=== PATIENT | female | born 1955 | race Caucasian/White ===

== ENCOUNTER 2017-11-21 08:52 | Emergency (ER) | payer OTHER ==
[2017-11-21 09:18] VITALS: BP 121/72
[2017-11-21] MEDS ORDERED: Ondansetron 4 MG/2 ML SDV IVPUSH ONE (09:33)
--- NOTE | 2017-11-21 09:33 | EDM.PDOC ---
ED HPI GENERAL MEDICAL PROBLEM - General Chief Complaint: Flank Pain Stated Complaint: POSS. KIDNEY STONE Time Seen by Provider: 11/21/17 09:27 Source of Information: Reports: Patient History Limitations: Reports: No Limitations - History of Present Illness INITIAL COMMENTS - FREE TEXT/NARRATIVE: 62-year-old female presents to the ED with acute onset of severe left lower quadrant abdominal pain. She states shortly after she woke this morning she felt a need to pass her bowels. Also moved 3 times this morning. On her way to work she started to develop left flank pain and then left kenya-abdominal pain radiating down to the left groin shortly after getting to work at 8:00. Associated nausea with vomiting 3 in the ED. She now feels somewhat better as far as nausea goes. Pain is down to a 2 out of 10. Last kidney stone was about 4 years ago requiring lithotripsy by Dr Chang to have it removed. Onset: Today Onset Date: 11/21/17 Onset Time: 07:30 Duration: Minutes: Location: Reports: Abdomen (Left lower quadrant of the abdomen left flank.) Quality: Reports: Ache, Sharp, Stabbing Severity: Severe (Was 9 out of 10 currently pain is 2-3 out of 10 and she states tolerable.) Improves with: Reports: Other Worsens with: Reports: None Context: Reports: Other (Acute onset of left kenya-abdominal pain rating to the left groin and left flank pain 0 through 7:30 hours this morning.). 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: Reports: Other (see below) (None.) Left Lower Abdomen Pain Score (Numeric/FACES): 6 - Related Data Allergies Allergy/AdvReac Type Severity Reaction Status Date / Time morphine Allergy Itching Verified 11/21/17 09:18 Sulfa (Sulfonamide Allergy Cannot Verified 11/21/17 09:18 Antibiotics) Remember Home Meds: Home Meds Cephalexin 500 mg PO QID 11/21/17 [History] Ondansetron [Zofran] 4 mg BUCCAL Q6H PRN #8 tab 11/21/17 [Rx] Tamsulosin [Tamsulosin 24 Hr] 0.4 mg PO DAILY #5 cap.er 11/21/17 [Rx] oxyCODONE HCl/Acetaminophen [Percocet 5-325 mg Tablet] 1 - 2 each PO Q4H PRN # 20 tablet 11/21/17 [Rx] Past Medical History 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 (See Below) Other OB/BYN History: inner tubular cyst removed from right ovary - Past Surgical History HEENT Surgical History: Reports: Tonsillectomy GI Surgical History: Reports: Appendectomy Female Surgical History: Reports: Kidney stone extraction, Tubal Ligation Social & Family History - Tobacco Use Smoking Status *Q: Never Smoker - Caffeine Use Caffeine Use: Reports: None - Alcohol Use Days Per Week of Alcohol Use: 0 - Recreational Drug Use Recreational Drug Use: No - Living Situation & Occupation Living situation: Reports: 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 Denies: Fever, Chills, Malaise, Weakness, Fatigue, Weight Loss HEENT: Reports: No Symptoms Respiratory: Reports: No Symptoms Cardiovascular: Reports: No Symptoms Endocrine: Reports: No Symptoms GI/Abdominal: Reports: Abdominal Pain (See history of present illness left kenya- abdominal pain rating to the left groin) : Reports: Flank Pain, Frequency. Denies: Hematuria Musculoskeletal: Reports: No Symptoms (Left flank pain) Skin: Reports: Pallor, Diaphoresis Neurological: Reports: No Symptoms Psychiatric: Reports: No Symptoms Hematologic/Lymphatic: Reports: No Symptoms Immunologic: Reports: No Symptoms ED EXAM, RENAL/ - Physical Exam Exam: See Below Exam Limited By: No Limitations General Appearance: Alert, WD/WN, Moderate Distress (She states pain is down to 3 out of 10.) Eye Exam: Bilateral Eye: Normal Inspection (No jaundice.) Respiratory/Chest: No Respiratory Distress, Lungs Clear, Normal Breath Sounds, No Accessory Muscle Use Cardiovascular: Normal Peripheral Pulses, Regular Rate, Rhythm, No Edema, No Gallop, No Murmur GI/Abdominal: Soft, Non-Tender, No Organomegaly, No Mass, Pelvis Stable, Abnormal Bowel Sounds, Other (Previous surgical scars were she's had an appendectomy and part of her right fallopian tube and ovary removed in the past. ) Back Exam: No: CVA Tenderness (L), CVA Tenderness (R) Extremities: Normal Inspection, Normal Range of Motion, Non-Tender, No Pedal Edema Neurological: Alert, Oriented, CN II-XII Intact, Normal Cognition, Normal Gait Psychiatric: Normal Affect, Normal Mood Skin Exam: Warm, Dry, Intact, Pallor (Mild pallor.) Course - Vital Signs Last Recorded V/S: Last Vital Signs Temp 35.8 C 11/21/17 09:12 Pulse 80 11/21/17 09:12 Resp 18 11/21/17 09:12 BP 121/72 11/21/17 09:12 Pulse Ox 100 11/21/17 09:12 - Orders/Labs/Meds Orders: Active Orders 24 hr Category Date Time Status Ketorolac [Toradol] Med 11/21/17 10:30 Active 30 mg IVPUSH ONETIME Medication Orders Ketorolac Tromethamine (Toradol) 30 mg IVPUSH ONETIME RESHMA Last Admin: 11/21/17 10:36 Dose: 30 mg Labs: Laboratory Tests 11/21/17 Range/Units 09:45 Urine Color Yellow (Yellow) Urine Appearance Clear (Clear) Urine pH 6.0 (5.0-8.0) Ur Specific [place] 1.025 (1.005-1.030) Urine Protein Trace H (Negative) Urine Glucose (UA) Negative (Negative) Urine Ketones Negative (Negative) Urine Occult Blood 3+ H (Negative) Urine Nitrite Negative (Negative) Urine Bilirubin Negative (Negative) Urine Urobilinogen 0.2 (0.2-1.0) Ur Leukocyte Esterase Negative (Negative) Urine RBC 10-20 H (0-5) /hpf Urine WBC 0-5 (0-5) /hpf Ur Epithelial Cells 0-5 (0-5) /hpf Urine Bacteria Few (FEW) /hpf Urine Mucus Not seen (FEW) /hpf Meds: Medications Generic Name Dose Route Start Last Admin Trade Name Freq PRN Reason Stop Dose Admin Ketorolac Tromethamine 30 mg 11/21/17 10:30 11/21/17 10:36 Toradol IVPUSH 30 mg ONETIME RESHMA Administration Discontinued Medications Generic Name Dose Route Start Last Admin Trade Name Freq PRN Reason Stop Dose Admin Hydromorphone HCl 0.5 mg 11/21/17 10:22 11/21/17 10:37 Dilaudid IVPUSH 11/21/17 10:23 0.5 mg ONETIME ONE Administration Hydromorphone HCl Confirm 11/21/17 10:40 11/21/17 10:40 Dilaudid Administered 11/21/17 10:41 Not Given Dose 0.5 mg .ROUTE .STK-MED ONE Ondansetron HCl 4 mg 11/21/17 09:33 11/21/17 09:49 Zofran IVPUSH 11/21/17 09:34 4 mg ONETIME ONE Administration - Radiology Interpretation Free Text/Narrative:: 62-year-old female presents the ED with acute onset of left kenya-abdominal pain radiating down to left groin. Associated low back pain and left flank pain. She has a history of renal stones in the past last one was about 4 years ago requiring lithotripsy. No clear she is presenting with left renal colic. Offered her pain medicine but she declined at this time. I will give her Zofran 4 mg sublingual so that she can tolerate oral meds later. CT of the abdomen will be done per renal protocol. Suspect if one becomes available. - Re-Assessments/Exams Free Text/Narrative Re-Assessment/Exam: 11/21/17 10:25 ordered Dilaudid 0.5 mg IV with Toradol 30 mg IV for acute pain relief. CT of the abdomen and pelvis per renal protocol revealed a proximal 6.2 mm obstructing stone within the proximal left ureter. Several small calcified gallstones also appreciated. No stones were identified in either renal parenchyma at this time. Free Text/Narrative Re-Assessment/Exam: 11/21/17 11:26 pain is much improved. I was able to make an appointment for her to see Dr. Chang on Saturday at 0845 hrs. This should be through the outpatient clinic at [facility]. She'll be discharged with Zofran 4 mg sublingually every 4-6 hours needed for nausea relief. Percocet tabs 5/325 milligrams one or 2 every 4-6 hours needed for pain relief. She will be provided a urinary symptoms of to collect urine specimens in case the stone Is to pass on its own over the weekend. Departure - Departure Time of Disposition: 11:57 Disposition: Home, Self-Care 01 Condition: Fair Clinical Impression: Renal colic on left side - Discharge Information Prescriptions: Ondansetron [Zofran] 4 mg BUCCAL Q6H PRN #8 tab PRN Reason: nausea or vomiting oxyCODONE HCl/Acetaminophen [Percocet 5-325 mg Tablet] 1 - 2 each PO Q4H PRN # 20 tablet PRN Reason: pain relief. Tamsulosin [Tamsulosin 24 Hr] 0.4 mg PO DAILY #5 cap.er Referrals: Jonny Everett MD [Primary Care Provider] - Forms: ED Department Discharge Additional Instructions: Evaluation the emergency room today in regards to acute onset of severe left sided abdominal pain rating down to the left groin compatible with a kidney stone. Suffered with these in the past. CT confirms a 6.2 mm stone lodged within the proximal left ureter. This stone has a 50% chance of passage since she required lithotripsy on last occasion is felt prudent to seek urological consultation sooner rather than later. I have therefore made arrangements for you to see Dr. Chang at [facility] in [place] on November 26 at 0845 hours. In the meantime strain the urine to see if you get trevon enough that the stone passes on its own over the weekend. Drink plenty of fluids. May use Motrin or Aleve for pain relief. May use Percocet 5/325 milligram tablets one or 2 every 4-6 hours for pain not controlled by Motrin or Aleve alone. Zofran 4 mg may be used under the tongue every 4-6 hours if necessary for relief of nausea or vomiting so that you can keep down pain medication. Use Flomax 0.4 mg every night at bedtime for the next 5 days as it may help relax the ureter and pass the stone. Return to medical care if you develop fever chills or nausea vomiting persists in spite of medication or pain is uncontrolled. - My Orders Last 24 Hours: My Active Orders 11/21/17 10:30 Ketorolac [Toradol] 30 mg IVPUSH ONETIME - Assessment/Plan Last 24 Hours: My Active Orders 11/21/17 10:30 Ketorolac [Toradol] 30 mg IVPUSH ONETIME
[2017-11-21] MEDS ORDERED: HYDROmorphone 1 MG/ML Syringe IVPUSH ONE (10:22)
[2017-11-21] MEDS ORDERED: Ketorolac 30 MG/ML SDV IVPUSH SCH (10:30)
--- NOTE | 2017-11-21 10:30 | CT ---
CT abdomen and pelvis Technique: Multiple axial sections were obtained from above the dome of the diaphragm inferiorly through the pubic symphysis. Intravenous and oral contrast not utilized. Comparison: Previous CT abdomen and pelvis exam of 12/13/14 is available. Findings: No abnormal calcifications are seen within either kidney. Mildly prominent collecting system and proximal left ureter is seen. Findings are due to to an obstructive stone on the left side within the proximal left ureter measuring approximately 6.2 mm. No additional ureteral calculi are seen on the right or left sides. Visualized lung bases are clear. Liver shows no discrete abnormality. Adrenal glands show no nodule. Pancreas is within normal limits. Spleen size is normal. Aorta shows no aneurysmal dilatation. Several calcified gallstones are seen within the gallbladder. No retroperitoneal adenopathy or mesenteric abnormalities are seen. No pelvic mass or adenopathy is seen. Bone window settings were reviewed which appear within normal limits for the patient's age. Impression: 1. Proximal left sided hydronephrosis caused by a 6.2 mm obstructing stone within the proximal left ureter. 2. Several small calcified gallstones. 3. No additional abnormality is appreciated on noncontrast CT study of the abdomen and pelvis. Diagnostic code #3
[2017-11-21] MEDS ORDERED: HYDROmorphone 0.5 MG/0.5 ML SYRINGE ONE (10:40)
== END 2017-11-21 12:20 | disposition home or self-care (01) ==
LOC: JD.ED 08:52
DX: N13.2 Hydronephrosis with renal and ureteral calculous obstruction (principal); Z88.2 Allergy status to sulfonamides; Z88.5 Allergy status to narcotic agent; Z79.899 Other long term (current) drug therapy
CPT/HCPCS: 74176; 81001; 96374; 96375; 99284; J1170; J1885; J2405

== ENCOUNTER 2020-11-26 20:30 | Emergency (ER) | payer OTHER ==
[2020-11-26 20:54] VITALS: BP 150/82; PULSE 98
[2020-11-26] MEDS ORDERED: Ketorolac 30 MG/ML SDV IM ONE (21:48)
--- NOTE | 2020-11-26 21:54 | EDM.PDOC ---
ED HPI GENERAL MEDICAL PROBLEM - General Chief Complaint: Lower Extremity Injury/Pain Stated Complaint: DROPPED CAN ON LEFT FOOT Time Seen by Provider: 11/26/20 21:31 Source of Information: Reports: Patient, RN Notes Reviewed History Limitations: Reports: No Limitations - History of Present Illness INITIAL COMMENTS - FREE TEXT/NARRATIVE: Patient is a 65-year-old female who presents to the ED for evaluation of a left foot injury. Patient notes that around noon today, she dropped a large count of food onto the top of her left foot. She states it did hurt initially, and she was able to go to [facility], and walk around on the extremity however later this evening, she tried to go up her stairs, and stated that it was too painful even to walk up the stairs. She does notice some swelling to the top of her foot, and some pain/cramping/stretching into the plantar surface of her foot as well. She did not take any sort of pain medications prior to coming to the ER. Patient denies any other sick-like symptoms, fever/chills, cough/shortness of breath, nausea/vomiting/diarrhea. 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 (See Below) Other CARD STRIPPER History: inner tubular cyst removed from right ovary - Infectious Disease History Infectious Disease History: Reports: C-Difficile, Measles, Mumps - Past Surgical History HEENT Surgical History: Reports: Tonsillectomy GI Surgical History: Reports: Appendectomy Female Surgical History: Reports: Kidney stone extraction, Tubal Ligation Social & Family History - Tobacco Use Tobacco Use Status *Q: Never Tobacco User Second Hand Smoke Exposure: No - Caffeine Use Caffeine Use: Reports: None - Recreational Drug Use Recreational Drug Use: No - Living Situation & Occupation Living situation: Reports: 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 ED EXAM, GENERAL - Physical Exam Exam: See Below Exam Limited By: No Limitations General Appearance: Alert, WD/WN, No Apparent Distress Respiratory/Chest: No Respiratory Distress, Lungs Clear, Normal Breath Sounds, No Accessory Muscle Use, Chest Non-Tender Cardiovascular: Normal Peripheral Pulses, Regular Rate, Rhythm, No Edema Peripheral Pulses: 2+: Dorsalis Pedis (L), Dorsalis Pedis (R) Extremities: Normal Capillary Refill, Limited Range of Motion (of left foot/toes d/t pain), Other (slight amount of swelling to dorsum of midfoot) Neurological: Alert, Oriented, Normal Cognition, No Motor/Sensory Deficits Psychiatric: Normal Affect, Normal Mood Skin Exam: Warm, Dry, Intact, Normal Color, No Rash Course - Vital Signs Last Recorded V/S: Last Vital Signs Temp 98.8 F 11/26/20 20:52 Pulse 98 11/26/20 20:52 Resp 18 11/26/20 20:52 BP 150/82 H 11/26/20 20:52 Pulse Ox 97 11/26/20 20:52 - Orders/Labs/Meds Orders: Active Orders 24 hr Category Date Time Status Foot Comp Min 3V Lt [CR] Stat Exams 11/26/20 21:04 Taken Ketorolac [Toradol] Med 11/26/20 21:48 Once 30 mg IM ONETIME ONE ELIJAH Bandage [Elastic Wrap] [OM.PC] Routine Oth 11/26/20 21:48 Ordered Medication Orders Ketorolac Tromethamine (Toradol) 30 mg IM ONETIME ONE Stop: 11/26/20 21:49 Meds: Medications Generic Name Dose Route Start Last Admin Trade Name Enrrique PRN Reason Stop Dose Admin Ketorolac Tromethamine 30 mg 11/26/20 21:48 Toradol IM 11/26/20 21:49 ONETIME ONE - Re-Assessments/Exams Free Text/Narrative Re-Assessment/Exam: 11/26/20 21:51 Patient presents to the ED for her left foot injury, patient did have x-rays taken at time of triage, these were reviewed by myself and Dr. Mendoza, no acute fracture was appreciated by either of us. Official radiology read is still pending. For today's purposes we will go ahead and give her an injection of Toradol for pain management, we will have her foot Elijah wrap, and try to keep her as nonweightbearing as possible. Patient did present with a walker prior to coming to the ER. We will have her follow-up with Dr. Cbaallero sometime this week if her pain is not getting much better in a few days time. Departure - Departure Time of Disposition: 21:52 Disposition: Home, Self-Care 01 Condition: Good Clinical Impression: Contusion of left foot, initial encounter - Discharge Information *PRESCRIPTION DRUG MONITORING PROGRAM REVIEWED*: No *COPY OF PRESCRIPTION DRUG MONITORING REPORT IN PATIENT ALOK: No Instructions: Foot Contusion, [id number] Referrals: Jonny Everett MD [Primary Care Provider] - Additional Instructions: You have been evaluated in the ED for your left foot injury. Your x-ray demonstrated no acute fracture or other apparent bony injury, likely you have a deep contusion to the top of the foot causing most of your pain. An Elijah wrap was applied at today's visit, to help provide compression and further pain relief. Please use ice as tolerated to the affected area. Please try to elevate the affected area to relieve swelling. Try to use the walker you presented with, to try to stay as nonweightbearing on the foot as much as possible. You may take Tylenol 500 mg or ibuprofen 600mg q6 hrs for pain relief. Please do so until you have a tolerable level of pain with activity. Do not exceed 4000mg Tylenol or 3200mg ibuprofen in a 24 hour time period. Recommend you follow-up with Dr. Caballero, sometime this week if your pain is not getting much better as expected in a few days time. Please return to ED if your symptoms should change or worsen. Sepsis Event Note (ED) - Evaluation Sepsis Screening Result: No Definite Risk - Focused Exam Vital Signs: Vital Signs Temp Pulse Resp BP Pulse Ox 11/26/20 20:52 98.8 F 98 18 150/82 H 97 - My Orders Last 24 Hours: My Active Orders 11/26/20 21:04 Foot Comp Min 3V Lt [CR] Stat 11/26/20 21:48 Ketorolac [Toradol] 30 mg IM ONETIME ONE ELIJAH Bandage [Elastic Wrap] [OM.PC] Routine - Assessment/Plan Last 24 Hours: My Active Orders 11/26/20 21:04 Foot Comp Min 3V Lt [CR] Stat 11/26/20 21:48 Ketorolac [Toradol] 30 mg IM ONETIME ONE ELIJAH Bandage [Elastic Wrap] [OM.PC] Routine
--- NOTE | 2020-11-27 10:01 | CR ---
Left foot: 4 views of the left foot were obtained. Comparison: No prior foot exam is available. Joint spaces are fairly well preserved. No acute fracture, dislocation or other bony abnormality is seen. Impression: 1. Nothing acute is identified on left foot study. Diagnostic code #1
== END 2020-11-26 22:25 | disposition home or self-care (01) ==
LOC: JD.ED 20:30
DX: S90.32XA Contusion of left foot, initial encounter (principal); Z88.5 Allergy status to narcotic agent; Z88.2 Allergy status to sulfonamides; W20.8XXA Other cause of strike by thrown, projected or falling object, initial encounter
CPT/HCPCS: 73630; 96372; 99283; J1885